=== PATIENT | male | born 1950 | race Caucasian/White ===

== ENCOUNTER 2019-11-26 09:14 | Emergency (ER) | payer MEDICARE, OTHER ==
[~2019-11-26] VITALS: Ht 172.7 cm; Wt 79.4 kg
[~2019-11-26 09:14] MED LIST: AFRIN; CLONAZEPAM1 MG PO; ERYTHROMYCIN 2%30 GM TOP; FLONASE16 GM; LEVOCETIRIZINE D5 MG PO; LISINOPRIL10 MG PO; METAMUCIL PO; MONTELUKAST SOD10 MG PO; SIMVASTATIN40 MG PO
--- NOTE | 2019-11-26 10:30 | Diagnostic Imaging Report ---
EXAM: CT Abdomen and Pelvis WITHOUT intravenous contrast INDICATION: Left flank pain COMPARISON: None. TECHNIQUE: Abdomen and pelvis were scanned utilizing a multidetector helical scanner from the lung base to the pubic symphysis without administration of IV contrast. Coronal and sagittal reformations were obtained. IV CONTRAST: None ORAL CONTRAST: Water COMPLICATIONS: None RADIATION DOSE: Total DLP: 418 mGy*cm Dose modulation, iterative reconstruction, and/or weight based adjustment of the mA/kV was utilized to reduce the radiation dose to as low as reasonably achievable. FINDINGS: LOWER THORAX: Normal. HEPATOBILIARY: No focal liver lesion. Unremarkable gallbladder. SPLEEN: No splenomegaly. PANCREAS: No focal masses or ductal dilatation. ADRENALS: No adrenal nodules. KIDNEYS/URETERS: 2 mm nonobstructive left upper pole renal calculus. Mild fat stranding adjacent to the slightly dilated left ureter may reflect recent interval stone passage. No obstructing ureteral calculus identified. No hydronephrosis. 6.4 cm exophytic right upper pole renal cyst. No solid renal mass lesion. PELVIC ORGANS/BLADDER: The prostate measures up to 5.0 x 4.3 x 4.6 cm. PERITONEUM / RETROPERITONEUM: Unremarkable bladder. No bladder calculi. LYMPH NODES: No lymphadenopathy. VESSELS: Moderate atherosclerotic calcifications of the nonaneurysmal abdominal aorta and major branches. GI TRACT: No abnormal bowel thickening. No bowel obstruction. Normal appendix. BONES AND SOFT TISSUES: No acute osseous injury. No suspicious lytic or blastic lesions. Postoperative findings of posterior lumbar fusion at L3-4. IMPRESSION: 2 mm nonobstructive left upper pole renal calculus. Mild left periureteral fat stranding may reflect recent passage of a stone. No hydronephrosis. 6.4 cm exophytic right upper pole simple renal cyst. Prostatomegaly. Signed by: Noa Albarado MD on 11/26/2019 10:26 AM
--- NOTE | 2019-11-26 10:44 | NUR ---
PATIENT TO ROOM 7
--- NOTE | 2019-11-26 11:00 | NUR ---
rec'd report in walking rounds with [facility]gen
[2019-11-26 11:09] LABS: BASOPHILS % 0.2 % (0.0-1.0); EOSINOPHILS % 0.4 % (0.0-6.0); HEMOGLOBIN 15.3 g/dL (14.0-18.0); LYMPHOCYTES # (AUTO) 2.2 (1.0-3.2); LYMPHOCYTES % 23.8 % (18.0-39.1); MEAN CORPUSCULAR HEMOGLOBIN 29.9 pg (28-32); MEAN CORPUSCULAR HGB CONC 33.3 g/dL (31-35); MONOCYTES # (AUTO) 0.4 (0.2-0.8); MONOCYTES % 4.9 % (4.4-11.3); NEUTROPHILS # (AUTO) 6.3 (2.1-6.9); NEUTROPHILS % 70.4 % (38.7-80.0); PLATELET COUNT 253 x10e3/uL (140-360); RED BLOOD COUNT 5.11 x10e6/uL (4.3-5.7); RED CELL DISTRIBUTION WIDTH 12.6 % (11.7-14.4)
[2019-11-26 11:31] LABS: ALANINE AMINOTRANSFERASE 12 IU/L (0-55); ALBUMIN 4.1 g/dL (3.5-5.0); ALBUMIN/GLOBULIN RATIO 1.3 (0.8-2.0); ALKALINE PHOSPHATASE 83 IU/L (40-150); ANION GAP 12.2 mmol/L (8-16); BLOOD UREA NITROGEN 14 mg/dL (7-26); BUN/CREATININE RATIO 13 (6-25); CALCIUM 9.3 mg/dL (8.4-10.2); CARBON DIOXIDE 27 mmol/L (22-29); CHLORIDE 104 mmol/L (98-107); CREATININE, SERUM 1.12 mg/dL (0.72-1.25); EST GLOMERULAR FILTRATION RATE > 60 ML/MIN (60-); GLUCOSE 101 mg/dL (74-118); POTASSIUM 4.2 mmol/L (3.5-5.1); SODIUM 139 mmol/L (136-145)
[2019-11-26 12:40] LABS: BILIRUBIN,URINE NEGATIVE (NEGATIVE); CLARITY,URINE CLEAR (CLEAR); COLOR,URINE YELLOW (YELLOW); KETONES,URINE NEGATIVE (NEGATIVE); LEUKOCYTE ESTERASE ,URINE NEGATIVE (NEGATIVE); NITRITE,URINE NEGATIVE (NEGATIVE); PROTEIN,URINE DIPSTICK NEGATIVE (NEGATIVE); URINE UROBILINOGEN 0.2 mg/dL (0.2 - 1)
[2019-11-26 12:44] LABS: BACTERIA,URINE FEW /HPF; EPITHELIAL CELLS,URINE RARE /LPF; RBC,URINE 0-5 /HPF (0-5); TRANSITIONAL EPI CELLS,URINE RARE; WBC,URINE (MAN) 0-5 /HPF (0-5)
--- NOTE | 2019-11-26 12:51 | Emergency Department Note ---
History of Present Illnes History of Present Illness Chief Complaint: Genitourinary History of Present Illness This is a 69 year old male c/o left flank pain started around 0700 this morning woke him out of sleep hx of kidney stones states this feels like another kidney stone. Historian: Patient Arrival Mode: Car Press Feeder Required: No Onset (how long ago): hour(s) Location: left flank Quality: sharp Radiation: Reports non-radiation Severity: moderate Onset quality: sudden Timing of current episode: intermittent Progression: waxing and waning Chronicity: recurrent Context: Denies recent illness Relieving factors: none Exacerbating factors: none Associated symptoms: Reports denies other symptoms Past Medical/Family History Physician Review I have reviewed the patient's past medical and family history. Any updates have been documented here. Past Medical History Recent Fever: No Clinical Suspicion of Infectio: No New/Unexplained Change in Ment: No Past Medical History: Hypertension, Kidney Stones, Hyperlipedemia Other Surgery: knee sx lithotripsy Social History Smoking Cessation: Never Smoker Counseling Performed: No Alcohol Use: None Any Illegal Drug Use: No TB Exposure/Symptoms: No Physically hurt or threatened: No Family History Family history of heart diseas: No Other Any Pre-Existing Lines (PICC,: No Review of Systems Review of Systems Constitutional: Reports no symptoms EENTM: Reports no symptoms Cardiovascular: Reports no symptoms Respiratory: Reports no symptoms Gastrointestinal: Reports as per HPI Genitourinary: Reports as per HPI Musculoskeletal: Reports no symptoms Integumentary: Reports no symptoms Neurological: Reports no symptoms Psychological: Reports no symptoms Endocrine: Reports no symptoms Hematological/Lymphatic: Reports no symptoms Physical Exam Related Data Allergies: Coded Allergies: ceftriaxone (Verified Allergy, Unknown, 11/26/19) Triage Vital Signs Vital Signs Date Time Temp Pulse Resp B/P (MAP) Pulse Ox O2 Delivery O2 Flow Rate FiO2 11/26/19 09:32 98.3 75 18 156/91 100 Room Air Vital signs reviewed: Yes Physical Exam CONSTITUTIONAL Constitutional: Present well-developed, Present well-nourished HENT HENT: Present normocephalic, Present atraumatic, Present oropharynx clear/moist, Present nose normal HENT L/R: Present left ext ear normal, Present right ext ear normal EYES Eyes: Reports PERRL, Reports conjunctivae normal NECK Neck: Present ROM normal PULMONARY Pulmonary: Present effort normal, Present breath sounds normal CARDIOVASCULAR Cardiovascular: Present regular rhythm, Present heart sounds normal, Present capillary refill normal, Present normal rate GASTROINTESTINAL Abdominal: Present soft, Present nontender, Present bowel sounds normal GENITOURINARY Genitourinary: Present exam deferred SKIN Skin: Present warm, Present dry MUSCULOSKELETAL Musculoskeletal: Present ROM normal NEUROLOGICAL Neurological: Present alert, Present oriented x 3, Present no gross motor or sensory deficits PSYCHOLOGICAL Psychological: Present mood/affect normal, Present judgement normal Results Laboratory Result Diagram: 11/26/1939 11/26/19 0939 Laboratory Laboratory Tests Test 11/26/19 11:45 11/26/19 09:39 White Blood Count 9.02 x10e3/uL (4.8-10.8) Red Blood Count 5.11 x10e6/uL (4.3-5.7) Hemoglobin 15.3 g/dL (14.0-18.0) Hematocrit 46.0 % (38.2-49.6) Mean Corpuscular Volume 90.0 fL (81-99) Mean Corpuscular Hemoglobin 29.9 pg (28-32) Mean Corpuscular Hemoglobin Concent 33.3 g/dL (31-35) Red Cell Distribution Width 12.6 % (11.7-14.4) Platelet Count 253 x10e3/uL (140-360) Neutrophils (%) (Auto) 70.4 % (38.7-80.0) Lymphocytes (%) (Auto) 23.8 % (18.0-39.1) Monocytes (%) (Auto) 4.9 % (4.4-11.3) Eosinophils (%) (Auto) 0.4 % (0.0-6.0) Basophils (%) (Auto) 0.2 % (0.0-1.0) Neutrophils # (Auto) 6.3 (2.1-6.9) Lymphocytes # (Auto) 2.2 (1.0-3.2) Monocytes # (Auto) 0.4 (0.2-0.8) Eosinophils # (Auto) 0.0 (0.0-0.4) Basophils # (Auto) 0.0 (0.0-0.1) Absolute Immature Granulocyte (auto 0.03 x10e3/uL (0-0.1) Sodium Level 139 mmol/L (136-145) Potassium Level 4.2 mmol/L (3.5-5.1) Chloride Level 104 mmol/L (98-107) Carbon Dioxide Level 27 mmol/L (22-29) Anion Gap 12.2 mmol/L (8-16) Blood Urea Nitrogen 14 mg/dL (7-26) Creatinine 1.12 mg/dL (0.72-1.25) Estimat Glomerular Filtration Rate > 60 ML/MIN (60-) BUN/Creatinine Ratio 13 (6-25) Glucose Level 101 mg/dL (74-118) Calcium Level 9.3 mg/dL (8.4-10.2) Total Bilirubin 0.6 mg/dL (0.2-1.2) Aspartate Amino Transf (AST/SGOT) 26 IU/L (5-34) Alanine Aminotransferase (ALT/SGPT) 12 IU/L (0-55) Alkaline Phosphatase 83 IU/L (40-150) Total Protein 7.2 g/dL (6.5-8.1) Albumin 4.1 g/dL (3.5-5.0) Globulin 3.1 g/dL (2.3-3.5) Albumin/Globulin Ratio 1.3 (0.8-2.0) Lab results reviewed: Yes Imaging Imaging results reviewed: Yes Impressions EXAM: CT Abdomen and Pelvis WITHOUT intravenous contrast INDICATION: Left flank pain COMPARISON: None. TECHNIQUE: Abdomen and pelvis were scanned utilizing a multidetector helical scanner from the lung base to the pubic symphysis without administration of IV contrast. Coronal and sagittal reformations were obtained. IV CONTRAST: None ORAL CONTRAST: Water COMPLICATIONS: None RADIATION DOSE: Total DLP: 418 mGy*cm Dose modulation, iterative reconstruction, and/or weight based adjustment of the mA/kV was utilized to reduce the radiation dose to as low as reasonably achievable. FINDINGS: LOWER THORAX: Normal. HEPATOBILIARY: No focal liver lesion. Unremarkable gallbladder. SPLEEN: No splenomegaly. PANCREAS: No focal masses or ductal dilatation. ADRENALS: No adrenal nodules. KIDNEYS/URETERS: 2 mm nonobstructive left upper pole renal calculus. Mild fat stranding adjacent to the slightly dilated left ureter may reflect recent interval stone passage. No obstructing ureteral calculus identified. No hydronephrosis. 6.4 cm exophytic right upper pole renal cyst. No solid renal mass lesion. PELVIC ORGANS/BLADDER: The prostate measures up to 5.0 x 4.3 x 4.6 cm. PERITONEUM / RETROPERITONEUM: Unremarkable bladder. No bladder calculi. LYMPH NODES: No lymphadenopathy. VESSELS: Moderate atherosclerotic calcifications of the nonaneurysmal abdominal aorta and major branches. GI TRACT: No abnormal bowel thickening. No bowel obstruction. Normal appendix. BONES AND SOFT TISSUES: No acute osseous injury. No suspicious lytic or blastic lesions. Postoperative findings of posterior lumbar fusion at L3-4. IMPRESSION: 2 mm nonobstructive left upper pole renal calculus. Mild left periureteral fat stranding may reflect recent passage of a stone. No hydronephrosis. 6.4 cm exophytic right upper pole simple renal cyst. Prostatomegaly. Signed by: Noa Albarado MD on 11/26/2019 10:26 AM Assessment & Plan Medical Decision Making MDM flank pain - check cbc, chem's, ua/cx, ct abd/pelvis - r/o ureterolithiasis, uti/pyelo, musculoskeletal pain, , electrolyte abnl, renal insuff Reassessment Reassessment pain completely resolved - likely he passed a stone. DC home with Taya, F/U PCP, and Dr Camacho Assessment & Plan Final Impression: (1) Ureterolithiasis Depart Disposition: HOME, SELF-CARE Last Vital Signs Date Time Temp Pulse Resp B/P (MAP) Pulse Ox O2 Delivery O2 Flow Rate FiO2 11/26/19 11:30 71 18 157/86 100 Room Air 11/26/19 09:32 98.3 Home Meds Reported Medications [Metamucil] No Conflict Check, 3 TSP PO DAILY 11/27/13 Fluticasone Propionate (FLONASE) 16 Gm [place].susp, 16 GM NA DAILY, BOTTLE 11/27/13 Levocetirizine Dihydrochloride (LEVOCETIRIZINE DIHYDROCHLORIDE) 5 Mg Tablet, 5 MG PO DAILY 11/27/13 Montelukast Sodium (MONTELUKAST SODIUM) 10 Mg Tablet, 10 MG PO DAILY, TAB 11/27/13 Clonazepam (CLONAZEPAM) 1 Mg Tablet, 0.5 MG PO 1-2HSPRN, TAB 11/27/13 Simvastatin (SIMVASTATIN) 40 Mg Tablet, 40 MG PO DAILY, TAB 11/27/13 Lisinopril (LISINOPRIL) 10 Mg Tablet, 10 MG PO HS, TAB 11/27/13 JEFF JACOBSON MD Nov 26, 2019 12:51
[2019-11-26 13:23] VITALS: BP 161/95
== END 2019-11-26 13:40 | disposition home or self-care (01) ==
LOC: ER 09:38
DX: N20.0 Calculus of kidney (principal); M54.5 Low back pain; N40.0 Benign prostatic hyperplasia without lower urinary tract symptoms
CPT/HCPCS: 36415; 74176; 80053; 81001; 85025; 87086; 99284